=== PATIENT | female | born 1985 | race Caucasian/White ===

== ENCOUNTER 2020-01-07 00:44 | Emergency (ER) | payer SELFPAY ==
--- NOTE | 2020-01-07 01:36 | ER Document Report ---
ED General - General Chief Complaint: Chest Tightness Stated Complaint: POSS ELEVATED BLOOD PRESSURE Time Seen by Provider: 01/07/20 01:35 Primary Care Provider: ADILIA PERSON MD [ACTIVE STAFF] - Follow up as needed CORINNE SCHWARTZ MD [ACTIVE STAFF] - Follow up as needed MELODY HERNANDEZ MD [HONORARY] - Follow up as needed Mode of Arrival: Ambulatory Information source: Patient TRAVEL OUTSIDE OF THE [place] IN LAST 30 DAYS: No - HPI Onset: Last week Onset/Duration: Gradual Quality of pain: Pressure Severity: Moderate Pain Level: 3 Associated symptoms: Chest pain, Headache Exacerbated by: Other - high blood pressure Relieved by: Denies Similar symptoms previously: Yes Recently seen / treated by doctor: No Notes: 34 year old female with a history of hypertension which sounds like has been extensively worked up with renal ultrasounds, echocardiogram, and other testing here for chest tightness for the last week in the setting of having high blood pressures. The patient says she has not been on blood pressure medications for about 1 year now. She used to be on Carvedilol 25mg BID, Losartan/HCTZ 100mg/25mg Daily, and Spironolactone 50mg Daily. The patient has been living in this area for about a year and she has no PCP and has not followed up with anyone due to financial and insurance issues. The patient says she has an implantable cardiac loop monitor in her chest but she has lost the transmitter and no longer follows up with the property assessment monitor group who implanted the device. - Related Data Allergies/Adverse Reactions: shellfish derived Allergy (Verified 01/07/20 01:12) dairy Allergy (Uncoded 01/07/20 01:12) Past Medical History - General Information source: Patient - Social History Smoking Status: Current Every Day Smoker Frequency of alcohol use: Occasional Drug Abuse: None Family History: Reviewed & Not Pertinent Patient has suicidal ideation: No Patient has homicidal ideation: No - Past Medical History Cardiac Medical History: Reports: Hx Hypertension Review of Systems - Review of Systems Constitutional: No symptoms reported EENT: No symptoms reported Cardiovascular: Chest pain, Other - High Blood Pressure Respiratory: No symptoms reported Gastrointestinal: No symptoms reported Genitourinary: No symptoms reported Female Genitourinary: No symptoms reported Musculoskeletal: No symptoms reported Skin: No symptoms reported Hematologic/Lymphatic: No symptoms reported Neurological/Psychological: No symptoms reported -: Yes All other systems reviewed and negative Physical Exam - Vital signs Vitals: Temp Pulse Resp BP Pulse Ox 98.6 F 92 20 195/116 H 96 01/07/20 00:52 01/07/20 00:52 01/07/20 00:52 01/07/20 00:52 01/07/20 00:52 - Notes Notes: GENERAL: Well-appearing, well-nourished and in no acute distress. HEAD: Atraumatic, normocephalic. EYES: Pupils equal round and reactive to light, extraocular movements intact, sclera anicteric, conjunctiva are normal. ENT: Nares patent, oropharynx clear without exudates. Moist mucous membranes. NECK: Normal range of motion, supple without lymphadenopathy or JVD. LUNGS: Breath sounds clear to auscultation bilaterally and equal. No wheezes rales or rhonchi. HEART: Regular rate and rhythm without murmurs, rubs or gallops. ABDOMEN: Soft, nontender, normoactive bowel sounds. No guarding, no rebound. No masses appreciated. EXTREMITIES: Normal range of motion, no pitting or edema. No clubbing or cyanosis. NEUROLOGICAL: Cranial nerves II through XII grossly intact. Normal speech, normal gait. PSYCH: Normal mood, normal affect. SKIN: Warm, Dry, normal turgor, no rashes or lesions noted. Course - Re-evaluation Re-evalutation: 01/07/20 03:44 The patient is here for chest pain in the setting of hypertension. The patient has been off all her blood pressure medications for about a year. Patient is low risk for ACS but she has been lost to follow up due to financial and insurance issues. Patient was given her old blood pressure medications and she was re- prescribed her old blood pressure medications as well. Patient's EKG is unrema rkable and her Trop is completely negative. Patinet is also PERC negative making PE unlikely. Will refer patient to PCP and Cardiology. - Vital Signs Vital signs: Temp Pulse Resp BP Pulse Ox 98.6 F 92 23 H 153/95 H 98 01/07/20 00:52 01/07/20 00:52 01/07/20 03:01 01/07/20 03:01 01/07/20 03:01 - Laboratory Result Diagrams: 01/07/20 02:35 01/07/20 02:35 Laboratory results interpreted by me: 01/07/20 02:35 RDW 14.9 H - EKG Interpretation by Me EKG shows normal: Sinus rhythm, [place], Intervals, QRS Complexes, ST-T Waves Rate: Normal Rhythm: NSR Discharge - Discharge Clinical Impression: Chest pain Qualifiers: Chest pain type: unspecified Qualified Code(s): R07.9 - Chest pain, unspecified Hypertension Qualifiers: Hypertension type: essential hypertension Qualified Code(s): I10 - Essential (primary) hypertension Condition: Stable Disposition: HOME, SELF-CARE Instructions: Chest Pain of Unclear Cause ([facility]), High Blood Pressure ([facility]) Additional Instructions: Start taking the prescribed blood pressure medications as you used to take them. Follow up with a primary care doctor ([facility] or with Dr. Schwartz) and also consider follow up with a [employer] (Dr. Person). Prescriptions: Carvedilol 25 mg PO BID #60 tablet Losartan/Hydrochlorothiazide [Losartan-Hctz 100-25 mg Tab] 1 each PO DAILY #30 tablet Spironolactone 50 mg PO DAILY #30 tablet Referrals: CORINNE SCHWARTZ MD [ACTIVE STAFF] - Follow up as needed MELODY HERNANDEZ MD [HONORARY] - Follow up as needed ADILIA PERSON MD [ACTIVE STAFF] - Follow up as needed
[2020-01-07] MEDS ORDERED: LOSARTAN POTASSIUM 50 MG TABLET PO ONE (01:47)
[2020-01-07] MEDS ORDERED: CARVEDILOL 12.5 MG TABLET PO ONE (01:47)
[2020-01-07] MEDS ORDERED: SPIRONOLACTONE 25 MG TABLET PO ONE (01:48)
[2020-01-07 02:47] LABS: ABSOLUTE BASOPHILS # (AUTO) 0.1 10^3/uL (0.0-0.2); ABSOLUTE EOSINOPHILS # (AUTO) 0.4 10^3/uL (0.0-0.6); ABSOLUTE LYMPHOCYTES (AUTO) 2.6 10^3/uL (0.5-4.7); ABSOLUTE MONOCYTES (AUTO) 0.5 10^3/uL (0.1-1.4); ABSOLUTE NEUT (AUTO) 3.2 10^3/uL (1.7-8.2); BASOPHILS % (AUTO) 1.3 % (0-2); HEMATOCRIT 40.5 % (36.0-47.0); HEMOGLOBIN 13.9 g/dL (12.0-15.5); LYMPHOCYTES % (AUTO) 38.2 % (13-45); MEAN CORPUSCULAR HEMOGLOBIN 30.6 pg (27.0-33.4); MEAN CORPUSCULAR HGB CONC 34.3 g/dL (32.0-36.0); MEAN CORPUSCULAR VOLUME 89 fl (80-97); MONOCYTES % (AUTO) 7.5 % (3-13); PLATELET COUNT 328 10^3/uL (150-450); RED BLOOD COUNT 4.53 10^6/uL (3.72-5.28); RED CELL DISTRIBUTION WIDTH 14.9 % (11.5-14.0); TOTAL CELLS COUNTED % (AUTO) 100 %; WHITE BLOOD COUNT 6.9 10^3/uL (4.0-10.5)
--- NOTE | 2020-01-07 02:47 | RADIOLOGY REPORT (SQ) ---
EXAM DESCRIPTION: XR CHEST 2 VIEWS COMPLETED DATE/TME: 01/07/2020 00:00 CLINICAL HISTORY: 34 years, Female, chest tightness COMPARISON: None. NUMBER OF VIEWS: TECHNIQUE: LIMITATIONS: None. FINDINGS: No evidence of pulmonary infiltrate or pleural effusion. The heart and mediastinum are unremarkable. Pulmonary vascularity appears normal. There is a cardiac loop recorder. IMPRESSION: No acute finding. copyright 2010 [employer]- All Rights Reserved
[2020-01-07 03:34] LABS: ALBUMIN 4.5 g/dL (3.5-5.0); ALKALINE PHOSPHATASE 68 U/L (38-126); ANION GAP 9 (5-19); ASPARTATE AMINO TRANSFERASE 22 U/L (14-36); BILIRUBIN,TOTAL 0.3 mg/dL (0.2-1.3); BLOOD UREA NITROGEN 7 mg/dL (7-20); CALCIUM 9.2 mg/dL (8.4-10.2); CARBON DIOXIDE 26 mmol/L (22-30); CHLORIDE 105 mmol/L (98-107); CREATINE KINASE 58 U/L (30-135); GLUCOSE 90 mg/dL (75-110); POTASSIUM 4.3 mmol/L (3.6-5.0); TOTAL PROTEIN 7.7 g/dL (6.3-8.2)
[2020-01-07 03:46] LABS: CREATINE KINASE MB 0.54 ng/mL (<4.55)
[2020-01-07 03:51] LABS: TROPONIN I < 0.012 ng/mL
[2020-01-07 04:02] VITALS: BP 138/90
--- NOTE | 2020-01-07 11:40 | EKG REPORT ---
SEVERITY:- NORMAL ECG - SINUS RHYTHM : Confirmed by: Marisela Saul 07-Jan-2020 11:40:29
== END 2020-01-07 04:08 | disposition home or self-care (01) ==
LOC: ER 00:44
DX: I10 Essential (primary) hypertension (principal); R07.89 Other chest pain; F17.200 Nicotine dependence, unspecified, uncomplicated; Z95.818 Presence of other cardiac implants and grafts; Z91.013 Allergy to seafood; Z91.018 Allergy to other foods
CPT/HCPCS: 36415; 71046; 80053; 82550; 82553; 84484; 85025; 93005; 93010; 99285

== ENCOUNTER 2020-10-27 17:28 | Emergency (ER) | payer SELFPAY ==
--- NOTE | 2020-10-27 19:11 | ER Document Report ---
HPI - HPI Patient complains to provider of: dental pain Time Seen by Provider: 10/27/20 19:06 Context: 35-year-old female presents emergency room complaining of right lower posterior dental pain. Patient states she cracked her tooth approximately 2 months ago and then cracked it again today. Has been taking Tylenol and Excedrin with some relief. Unable to get an appointment with a dentist. Denies any chance of . Associated Symptoms: None Exacerbated by: Food Relieved by: Denies Similar symptoms previously: No Recently seen / treated by doctor: No - ROS Systems Reviewed and Negative: Yes All other systems reviewed and negative - EENT EENT: DENIES: Sore Throat - REPRODUCTIVE Reproductive: DENIES: : Past Medical History - General Information source: Patient - Social History Smoking Status: Current Every Day Smoker Frequency of alcohol use: Occasional Drug Abuse: Marijuana Family History: Reviewed & Not Pertinent - Past Medical History Cardiac Medical History: Reports: Hx Hypertension Past Surgical History: Reports: Hx Cholecystectomy Vertical Provider Document - CONSTITUTIONAL Agree With Documented VS: Yes Exam Limitations: No Limitations General Appearance: Mild Distress - INFECTION CONTROL TRAVEL OUTSIDE OF THE [place] IN LAST 30 DAYS: No - HEENT HEENT: Atraumatic, Dental Injury - Right left posterior molar is cracked with a nonfluctuant abscess noted around the tooth. It is tender to palpation., Normocephalic Mouth Diagram: 1 - Fractured tooth with nonfluctuant abscess. - NECK Neck: Normal Inspection, Supple. negative: Lymphadenopathy-Left, Lymphadenopathy-Right - RESPIRATORY Respiratory: Breath Sounds Normal, No Respiratory Distress - CARDIOVASCULAR Cardiovascular: Regular Rate, Regular Rhythm, No Murmur - NEURO Level of Consciousness: Awake, Alert, Appropriate Motor/Sensory: No Motor Deficit, No Sensory Deficit Course - Re-evaluation Re-evalutation: 10/27/20 19:09 Reviewed diagnosis with patient counseled on soft diet. Continue with Tylenol and or Motrin as needed for pain. Antibiotics as prescribed. Outpatient follow-up with a dentist as soon as possible. Patient was given strict return to the emergency room guidelines. Return for any new or worsening symptoms. All questions were answered. Patient verbalized understanding and agrees with plan of care. 10/27/20 22:02 - Vital Signs Vital signs: Temp Pulse Resp BP Pulse Ox 98.0 F 79 16 183/97 H 100 10/27/20 17:46 10/27/20 17:46 10/27/20 17:46 10/27/20 17:46 10/27/20 17:46 - Laboratory Results Critical Laboratory Results Reviewed: No Critical Results - Radiology Results Critical Radiology Results Reviewed: No Critical Results Discharge - Discharge Clinical Impression: Dental abscess Dental implant pain Qualifiers: Encounter type: initial encounter Qualified Code(s): T85.848A - Pain due to other internal prosthetic devices, implants and grafts, initial encounter Condition: Stable Disposition: HOME, SELF-CARE Instructions: Dental Infection or Abscess ([facility]), Penicillin V K ([facility]), Toothache ([facility]) Additional Instructions: Soft diet, penicillin as prescribed. Tylenol and or Motrin as needed for pain. Dentist as soon as possible. Return to the emergency room for any new or worsening symptoms. Prescriptions: Penicillin V Potassium [Penicillin Vk 500 mg Tablet] 500 mg PO QID #40 tablet Forms: Return to Work Referrals: [facility] [Provider Group] - Follow up as needed [facility] [Provider Group] - Follow up as needed
[2020-10-27 19:29] VITALS: BP 147/100
== END 2020-10-27 19:28 | disposition home or self-care (01) ==
LOC: ER 17:28
DX: K04.7 Periapical abscess without sinus (principal); M27.69 Other endosseous dental implant failure; K03.81 Cracked tooth; F17.200 Nicotine dependence, unspecified, uncomplicated; F12.10 Cannabis abuse, uncomplicated
CPT/HCPCS: 99283